=== PATIENT | male | born 1955 | race African-American/Black ===

== ENCOUNTER 2019-06-11 22:33 | Emergency (ER) | payer MEDICAID ==
[~2019-06-11] VITALS: Ht 162.6 cm; Wt 63.6 kg
[2019-06-11 22:37] VITALS: Ht 162.6 cm; Wt 63.6 kg
[2019-06-11] MEDS ORDERED: ULTRAM50 MG PO (22:40)
[2019-06-11] MEDS ORDERED: BACLOFEN10 MG PO (22:40)
[2019-06-11 23:33] LABS: HEMATOCRIT 29.6 % (42.0-54.0); HEMOGLOBIN 9.9 g/dL (13.5-17.5); MCV 75.3 fL (80.0-100.0); RBC 3.93 10x6/uL (4.20-6.10); WBC 9.4 10x3/uL (4.8-10.8)
[2019-06-11 23:34] LABS: LYMPHOCYTES 14.3 % (15-50); MCH 25.2 pg (26.0-34.0); MCHC 33.4 g/dL (31.0-37.0); MEAN PLATELET VOLUME 8.8 fL (7.4-10.4); NEUTROPHILS 76.4 % (40-80); PLATELET COUNT 172 10x3/uL (130-400)
[2019-06-11 23:41] LABS: ALBUMIN 3.3 g/dL (3.4-5.0); ALKALINE PHOSPHATASE 88 U/L (46-116); ALT (SGPT) 10 U/L (10-68); BILIRUBIN - TOTAL 0.51 mg/dL (0.2-1.3); CALC OSMOLALITY 281 mosm/kg (275-300); CARBON DIOXIDE 16.5 mmol/L (21.0-32.0); CHLORIDE - SERUM 96 mmol/L (98-107); CREATININE - SERUM 11.1 mg/dL (0.6-1.3); POTASSIUM - SERUM 5.2 mmol/L (3.5-5.1); PROTEIN - SERUM 7.4 g/dL (6.4-8.2); SODIUM 130 mmol/L (136-145); UREA NITROGEN 78 mg/dL (7-18); eGFR NON AFRICAN AMERICAN 5 mL/min (90-120)
[2019-06-11 23:46] LABS: GLUCOSE 56 mg/dL (74-106)
[2019-06-11 23:53] LABS: CKMB 4.7 U/L (0.0-3.6); CREATINE KINASE 219 UL (21-232)
[2019-06-11 23:58] LABS: TROPONIN-I < 0.017 ng/mL (0.000-0.060)
[2019-06-12 01:04] LABS: APPEARANCE CLEAR (CLEAR); BILIRUBIN NEGATIVE (NEGATIVE); COLOR YELLOW (YELLOW); GLUCOSE NEGATIVE (NEGATIVE); KETONE NEGATIVE (NEGATIVE); NITRITE NEGATIVE (NEGATIVE); PROTEIN NEGATIVE (NEGATIVE); SPECIFIC GRAVITY 1.005 (1.005-1.020); UROBILINOGEN NORMAL (NORMAL)
[2019-06-12 01:07] LABS: BACTERIA FEW /hpf (NONE SEEN); EPITHELIAL CELLS 0-5 /hpf (0-5); RED CELLS - URINE 0-5 /hpf (0-5); WHITE CELLS - URINE 0-5 /hpf (0-5)
[2019-06-12 01:33] VITALS: BP 183/77
== END 2019-06-12 01:33 ==
LOC: D.ER 22:33
PROVIDERS: Family Medicine
DX: N17.9 Acute kidney failure, unspecified (principal); E87.1 Hypo-osmolality and hyponatremia; E87.5 Hyperkalemia; N20.1 Calculus of ureter